=== PATIENT | female | born 2000 | race Caucasian/White ===

== ENCOUNTER 2024-01-01 20:14 | Emergency (ER) | payer OTHER ==
[~2024-01-01] VITALS: Ht 152.4 cm; Wt 48.1 kg
[2024-01-02] MEDS ORDERED: AZIT250T PO (00:17)
[2024-01-02] MEDS ORDERED: BENZ-13 PO (00:17)
[2024-01-02 00:42] VITALS: BP 111/71; TEMP 99.4; O2SAT 99
== END 2024-01-02 00:42 | disposition home or self-care (01) ==
LOC: ER 20:16
DX: J40 Bronchitis, not specified as acute or chronic (principal); Z20.822 Contact with and (suspected) exposure to COVID-19
CPT/HCPCS: 71045-TC